=== PATIENT | female | born 1930 | race African-American/Black ===

== ENCOUNTER 2016-07-18 10:57 | Observation (INO) | payer OTHER ==
[2016-07-18] MEDS ORDERED: SODIUM CHLORIDE 1,000 ML IV STA (11:20)
[2016-07-18 11:35] VITALS: BMI 22.3
--- NOTE | 2016-07-18 11:39 | PDOC ---
History of Present Illness - General Chief Complaint: Syncope/Near Syncope Stated Complaint: HYPOTENSIVE Time Seen by Provider: 07/18/16 11:14 History Source: Patient Exam Limitations: Dementia (mild) - History of Present Illness Initial Comments: 85 y/o F with PMH of DM presents to ER with report of syncopal event. Pt states that she was at a nutrition center today when she "didn't feel" right and was brought to ER. According to EMS pt had a witnessed syncopal event in her chair without head trauma w/high BGM and was hypotensive in 80s. Pt states she did not lose consciousness. At this time she also has the same feeling as "just not feeling right". She denies light-headedness, dizziness, change in vision, ringing in ears, cough, sob, chest pain, palpitations, loss of appetite, abdominal pain, diarrhea, constipation, blood in stool, dysuria, blood in urine , swelling, recent travel, sick contacts. 07/18/16 11:56 Past History - Past Medical History Allergies/Adverse Reactions: Allergies Allergy/AdvReac Type Severity Reaction Status Date / Time No Known Allergies Allergy Verified 07/18/16 11:16 Home Medications: Ambulatory Orders Amlodipine Besylate 5 mg PO DAILY 07/18/16 Aspirin [ASA -] 81 mg PO DAILY 07/18/16 Atorvastatin Ca [Lipitor] 40 mg PO HS 07/18/16 Donepezil HCl [Aricept -] 5 mg PO DAILY 07/18/16 Esomeprazole Magnesium [Nexium 24Hr] 40 mg PO DAILY 07/18/16 Ezetimibe [Zetia] 10 mg PO DAILY 07/18/16 Insulin (Novolog 70/30) [Novolog Mix 70/30 Flexpen -] 20 units SQ DAILY Insulin (Novolog 70/30) [Novolog Mix 70/30 Flexpen -] 40 units SQ AM 07/18/16 Insulin (Novolog 70/30) [Novolog Mix 70/30 Flexpen -] 40 units SQ HS 07/18/16 Lisinopril [Prinivil] 10 mg PO DAILY 07/18/16 Valsartan [Diovan] 160 mg PO DAILY 07/18/16 Diabetes: Yes GI Disorders: Yes (gerd) HTN: Yes Hypercholesterolemia: Yes Psychiatric Problems: Yes (dementia) - Psycho/Social/Smoking Cessation Hx Suicidal Ideation: No Smoking History: Never smoked Hx Alcohol Use: No Drug/Substance Use Hx: No Review of Systems - Review of Systems Able to Perform ROS?: Yes Comments:: CONSTITUTIONAL: +"not feeling well" Absent: fever, chills, generalized weakness, loss of appetite HEENT: Absent: throat pain, throat swelling, difficulty swallowing, ear pain, eye pain, visual Changes CARDIOVASCULAR: Absent: chest pain, syncope, palpitations, irregular heart rate , lightheadedness, peripheral edema RESPIRATORY: Absent: cough, shortness of breath, dyspnea with exertion, wheezing , stridor GASTROINTESTINAL:Absent: abdominal pain, nausea, vomiting, diarrhea, constipation, hematochezia GENITOURINARY: Absent: dysuria, hematuria, flank pain, genital pain SKIN: Absent: rash, itching, pallor ENDOCRINE:Absent: unexplained weight gain, unexplained weight loss NEUROLOGIC: Absent: headache, focal weakness or paresthesias, dizziness, unsteady gait, mental status changes PSYCHIATRIC: Absent: anxiety, depression, suicidal or homicidal ideation, hallucinations *Physical Exam - Vital Signs Last Vital Signs Temp Pulse Resp BP Pulse Ox 98.1 F 63 18 91/46 96 07/18/16 11:16 07/18/16 11:16 07/18/16 11:16 07/18/16 11:16 07/18/16 11:16 - Physical Exam Comments: GENERAL: +mild dementia. Well developed, well nourished. Awake and alert. No acute distress. HEENT: Normocephalic, atraumatic. PERRLA, EOMI. No conjunctival pallor. Sclera are non-icteric. NECK: Supple. Full ROM. CARDIOVASCULAR: +holosystolic murmur best heard in aortic region. Regular rate and rhythm. No rubs, or gallops. Distal pulses are 2+ and symmetric. PULMONARY: No evidence of respiratory distress. Lungs clear to auscultation bilaterally. No wheezing, rales or rhonchi. ABDOMINAL: Soft. Non-tender. Non-distended. No rebound or guarding. No organomegaly. Normoactive bowel sounds. MUSCULOSKELETAL: Normal range of motion at all joints. No bony deformities or tenderness. No CVA tenderness. EXTREMITIES: No cyanosis. No edema. SKIN: Warm and dry. Normal capillary refill. No rashes. No jaundice. NEUROLOGICAL: +mild dementia, Alert, awake, appropriate. Normal speech. PSYCHIATRIC: +mild dementia, Cooperative. Good eye contact. Appropriate mood and affect. ED Treatment Course - LABORATORY CBC & Chemistry Diagram: 07/18/16 11:16 07/18/16 23:00 Medical Decision Making - Medical Decision Making 07/18/16 11:52 Will work up pt for syncopal episode. CBC, CMP, Mg, UA, acetone, Head CT. Will also add echo due to +murmur on PE. Fluids also ordered for hypotension. *DC/Admit/Observation/Transfer Diagnosis at time of Disposition: Syncope, Diabetes mellitus out of control, Lactic acid acidosis
[2016-07-18 11:44] LABS: MCH 29.9 pg (25.7-33.7); MCHC 33.1 g/dl (32.0-36.0); MEAN CELL VOLUME 90.4 fl (80-96); MEAN PLT VOLUME 12.1 fl (7.5-11.1); PLATELET COUNT 137 K/MM3 (134-434); WHITE BLOOD COUNT 10.7 K/mm3 (4.0-10.0)
--- NOTE | 2016-07-18 11:44 | PDOC ---
Attending Attestation - Resident Resident Name: Mark Sandy - ED Attending Attestation I have performed the following: I have examined & evaluated the patient, The case was reviewed & discussed with the resident, I agree w/resident's findings & plan - HPI HPI: 07/18/16 11:52 - HPI HPI: 07/18/16 11:51 Patient is a 85 year old female with a significant past medical history of mild dementia, DM, hypertension and hyperlipidemia who presents to the ED from [facility] s/p syncopal episode. As per nursing staff, patient was witnessed to have a syncopal episode while sitting down in the chair that lasted for 2 minutes, she did not fall out of the chair. Patient states that she did not syncopize she notes that she did not feel good so she put her head down on the table. As per EMS, patient was found to be BGM of 506 and hypotensive 85/66 and IV of NS was started and BGM of 506. Patient denies fever, chills, cp, SOB, nausea, vomiting, diarrhea, constipation , abdominal pain. Patient denies dysuria. She denies any headache, LOC, blurry vision, numbness or tingling. SH: lives at home by herself, and goes to adult daycare every day. Her daughter lives nearby per pt Allergies: NKA <Nuvia Chavez - Last Filed: 07/18/16 11:51> - Physicial Exam PE: 07/18/16 11:53 Physical exam Last Vital Signs Temp Pulse Resp BP Pulse Ox 98.1 F 63 18 91/46 96 07/18/16 11:16 07/18/16 11:16 07/18/16 11:16 07/18/16 11:16 07/18/16 11:20 Pt is A+O x 2 1/2 Patient is answering questions, and head is normocephalic and atraumatic Lungs are clear Heart is regular with a 1 to 2 out of 6 holosystolic murmur Abdomen is soft and nontender Grossly nonfocal neurologic exam - Medical Decision Making 07/18/16 11:55 EKG Normal sinus rhythm 64, with occasional PACs Normal AV and IV conduction time Normal QTC Otherwise normal EKG There is no old EKG available for comparison at this time 85-year-old female with a witnessed syncopal episode, who did not fall out of the chair or strike her head, and was found hypotensive, and with a high blood sugar She denies any specific complaints at this time and just states that she generally doesn't feel well, without specifics 07/18/16 15:17 Laboratory Results - last 24 hr 07/18/16 07/18/16 07/18/16 11:16 11:16 11:16 WBC 10.7 H RBC 4.49 Hgb 13.4 Hct 40.6 MCV 90.4 MCHC 33.1 RDW 13.0 Plt Count 137 MPV 12.1 H Sodium 138 Potassium 3.9 Chloride 101 Carbon Dioxide 27 Anion Gap 10 BUN 22 H Creatinine 1.5 H Creat Clearance w eGFR 33.16 Random Glucose 355 H* Lactic Acid Calcium 8.8 Magnesium 1.9 Total Bilirubin 0.3 AST 14 L ALT 30 Alkaline Phosphatase 114 Creatine Kinase 36 Troponin I < 0.02 Total Protein 6.0 L Albumin 2.9 L Urine Color Urine Appearance Urine pH Urine Protein Urine Glucose (UA) Urine Ketones Urine Blood Urine Nitrite Urine Bilirubin Urine Urobilinogen Ur Leukocyte Esterase Urine RBC Urine WBC Acetone, Qual Negative L 07/18/16 07/18/16 07/18/16 11:16 12:16 14:28 WBC RBC Hgb Hct MCV MCHC RDW Plt Count MPV Sodium Potassium Chloride Carbon Dioxide Anion Gap BUN Creatinine Creat Clearance w eGFR Random Glucose 392 H* Lactic Acid 4.804 H* Calcium Magnesium Total Bilirubin AST ALT Alkaline Phosphatase Creatine Kinase Troponin I Total Protein Albumin Urine Color Straw Urine Appearance Clear Urine pH 6.0 Urine Protein 2+ H Urine Glucose (UA) 3+ H Urine Ketones Negative Urine Blood Negative Urine Nitrite Negative Urine Bilirubin Negative Urine Urobilinogen Negative Ur Leukocyte Esterase Negative Urine RBC None Urine WBC None Acetone, Qual Repeat glucose came up According to patient's son, she has not been taking her medication Will give a small dose of IV insulin, and continue IV hydration Repeat lactic still pending 07/18/16 15:20 CT scan of the head without There is some volume loss Otherwise NAD Chest x-ray Patient is very rotated no def. infiltrate seen 07/18/16 15:49 Repeat lactic down to 3.0 with hydration Patient given 3 units of regular insulin IV Will continue hydration Case and all results discussed with Dr. Gutierrez-will admit Discharge Disposition - Discharge Dispostion Admit: Yes - Diagnosis Syncope, Diabetes mellitus out of control, Lactic acid acidosis
[2016-07-18 12:04] LABS: ALBUMIN 2.9 g/dl (3.4-5.0); ANION GAP 10 (8-16); CALCIUM 8.8 mg/dL (8.5-10.1); CO2 27 mmol/L (21-32); MAGNESIUM 1.9 mg/dL (1.8-2.4)
[2016-07-18 12:09] LABS: ALK PHOS 114 U/L (45-117); BILIRUBIN,TOTAL 0.3 mg/dL (0.2-1.0); CREATININE 1.5 mg/dL (0.55-1.02); SGOT/AST 14 U/L (15-37); SGPT/ALT 30 U/L (12-78); TROPONIN I < 0.02 ng/ml (0.00-0.05)
[2016-07-18 12:11] LABS: GLUCOSE,RANDOM 355 mg/dL (74-106)
[2016-07-18 12:33] LABS: URINE APPEARANCE CLEAR; URINE BILIRUBIN NEGATIVE (NEGATIVE); URINE BLOOD NEGATIVE (NEGATIVE); URINE COLOR STRAW; URINE GLUCOSE (UA) 3+ (NEGATIVE); URINE KETONE NEGATIVE (NEGATIVE); URINE LEUK ESTERASE NEGATIVE (NEGATIVE); URINE NITRITE NEGATIVE (NEGATIVE); URINE UROBILINOGEN NEGATIVE E.U./dl (0.2-1.0)
[2016-07-18 12:42] LABS: URINE PROTEIN 2+ (NEGATIVE)
[2016-07-18] MEDS ORDERED: INSULIN REGULAR HUMAN 100 UNITS/ML *VIAL IVPUSH ONE (15:18)
[2016-07-18] MEDS ORDERED: INSULIN REGULAR HUMAN 100 UNITS/ML *VIAL ONE (16:04)
--- NOTE | 2016-07-18 16:36 | HP ---
CHIEF COMPLAINT: I didn't feel right PCP: Dr. Jud Nuñez HISTORY OF PRESENT ILLNESS: 85 yo AA F with h/o mild dementia on aricept, IDDM type 2, HTN brought in by EMS because she didn't feel right. Patient stated that she was at a senior center and talking to the staff when she suddenly felt "not right". She then put her head on the table and try to rest. The product design manager at the senior center called EMS and she's brought to [facility] ED. She's on novolog flexpen 70/30 mix dose 40 units before sleep, 40 units in AM, and 20 units during the day and she admits that her blood sugar before injection ranges from 300-500. She denies polyuria, dysuria, abd pain, chest pain, dizziness, loss of consciousness, headache, vision change, weakness in extremities. ER course was notable for: (1) BP of 91/46 before fluid, 122/59 after 1L NS (2) Lactic acid of 4.8, glc of 355 (3) 3 units of regular insulin given Recent Travel: Denies PAST MEDICAL HISTORY: Mild dementia HTN IDDM PAST SURGICAL HISTORY: None Social History: Smokin cigarettes/day since 19 years old Alcohol: Social Drugs: Denies Family History: Allergies No Known Allergies Allergy (Verified 07/18/16 11:16) HOME MEDICATIONS: Home Medications Medication Instructions Recorded Amlodipine Besylate 5 mg PO DAILY 07/18/16 Aspirin [ASA -] 81 mg PO DAILY 07/18/16 Atorvastatin Ca [Lipitor] 40 mg PO HS 07/18/16 Donepezil HCl [Aricept -] 5 mg PO DAILY 07/18/16 Esomeprazole Magnesium [Nexium 40 mg PO DAILY 07/18/16 24Hr] Ezetimibe [Zetia] 10 mg PO DAILY 07/18/16 Insulin (Novolog 70/30) [Novolog 20 units SQ DAILY 07/18/16 Mix 70/30 Flexpen -] Insulin (Novolog 70/30) [Novolog 40 units SQ AM 07/18/16 Mix 70/30 Flexpen -] Insulin (Novolog 70/30) [Novolog 40 units SQ HS 07/18/16 Mix 70/30 Flexpen -] Lisinopril [Prinivil] 10 mg PO DAILY 07/18/16 Valsartan [Diovan] 160 mg PO DAILY 07/18/16 REVIEW OF SYSTEMS CONSTITUTIONAL: Absent: fever, chills, diaphoresis, generalized weakness, malaise, loss of appetite, weight change HEENT: Absent: rhinorrhea, nasal congestion, throat pain, throat swelling, difficulty swallowing, mouth swelling, ear pain, eye pain, visual changes CARDIOVASCULAR: Absent: chest pain, syncope, palpitations, irregular heart rate, lightheadedness , peripheral edema RESPIRATORY: Absent: cough, shortness of breath, dyspnea with exertion, orthopnea, wheezing, stridor, hemoptysis GASTROINTESTINAL: Absent: abdominal pain, abdominal distension, nausea, vomiting, diarrhea, constipation, melena, hematochezia GENITOURINARY: Absent: dysuria, frequency, urgency, hesitancy, hematuria, flank pain, genital pain MUSCULOSKELETAL: Absent: myalgia, arthralgia, joint swelling, back pain, neck pain SKIN: Absent: rash, itching, pallor HEMATOLOGIC/IMMUNOLOGIC: Absent: easy bleeding, easy bruising, lymphadenopathy, frequent infections ENDOCRINE: Absent: unexplained weight gain, unexplained weight loss, heat intolerance, cold intolerance NEUROLOGIC: Absent: headache, focal weakness or paresthesias, dizziness, unsteady gait, seizure, mental status changes, bladder or bowel incontinence PSYCHIATRIC: Absent: anxiety, depression, suicidal or homicidal ideation, hallucinations. PHYSICAL EXAMINATION Vital Signs Temperature 98.4 F 07/18/16 15:00 Pulse Rate 67 07/18/16 15:00 Respiratory Rate 20 07/18/16 15:00 Blood Pressure 122/59 07/18/16 15:00 O2 Sat by Pulse Oximetry (%) 96 07/18/16 15:00 GENERAL: Awake, alert, and fully oriented, in no acute distress. HEAD: Normal with no signs of trauma. EYES: Bilateral Cloudy pupils, sclera anicteric, conjunctiva clear. EARS, NOSE, THROAT: Ears normal, nares patent, oropharynx clear without exudates. Moist mucous membranes. NECK: Normal range of motion, supple without lymphadenopathy, JVD, or masses. LUNGS: Breath sounds equal, clear to auscultation bilaterally. No wheezes, and no crackles. No accessory muscle use. HEART: Regular rate and rhythm, normal S1 and S2 with ejection murmur, rub or gallop. ABDOMEN: Soft, nontender, not distended, normoactive bowel sounds, no guarding, no rebound, no masses. EXTREMITIES: 2+ pulses, No calf tenderness. No peripheral edema. SKIN: Warm, dry CBCD WBC 10.7 K/mm3 (4.0-10.0) H 07/18/16 11:16 RBC 4.49 M/mm3 (3.60-5.2) 07/18/16 11:16 Hgb 13.4 GM/dL (10.7-15.3) 07/18/16 11:16 Hct 40.6 % (32.4-45.2) 07/18/16 11:16 MCV 90.4 fl (80-96) 07/18/16 11:16 MCHC 33.1 g/dl (32.0-36.0) 07/18/16 11:16 RDW 13.0 % (11.6-15.6) 07/18/16 11:16 Plt Count 137 K/MM3 (134-434) 07/18/16 11:16 MPV 12.1 fl (7.5-11.1) H 07/18/16 11:16 CMP Sodium 138 mmol/L (136-145) 07/18/16 11:16 Potassium 3.9 mmol/L (3.5-5.1) 07/18/16 11:16 Chloride 101 mmol/L (98-107) 07/18/16 11:16 Carbon Dioxide 27 mmol/L (21-32) 07/18/16 11:16 Anion Gap 10 (8-16) 07/18/16 11:16 BUN 22 mg/dL (7-18) H 07/18/16 11:16 Creatinine 1.5 mg/dL (0.55-1.02) H 07/18/16 11:16 Creat Clearance w eGFR 33.16 (>60) 07/18/16 11:16 Calcium 8.8 mg/dL (8.5-10.1) 07/18/16 11:16 Total Bilirubin 0.3 mg/dL (0.2-1.0) 07/18/16 11:16 AST 14 U/L (15-37) L 07/18/16 11:16 ALT 30 U/L (12-78) 07/18/16 11:16 Alkaline Phosphatase 114 U/L (45-117) 05/11/17 11:16 Total Protein 6.0 g/dl (6.4-8.2) L 07/18/16 11:16 Albumin 2.9 g/dl (3.4-5.0) L 07/18/16 11:16 ASSESSMENT/PLAN: 85 yo AA F with h/o mild dementia on aricept, IDDM type 2, HTN admitted for observation for hyperglycemia. Hyperglycemia - Due to poorly controlled diabetes - S/p 3 units of regular insulin - On Sliding scale - BGM Elevated lactic acid - 2/2 hyperglycemia and tissue hypoxia from hypotension - Repeat lactic acid at 6pm today and 6am tomorrow DEMARIO - Unknown baseline - Likely 2/2 dehydration in the setting of diabetic nephropathy - Cont. hydration HTN - Hold home BP medication Dementia - Cont. aricept FEN - NS 150cc/hr - Cont. to monitor Cr - Diabetic diet Prophylaxis - DVT: heparin - GI: not indicated Disposition - Obs - Discharge if lactic acid and blood glc normalizes Code status - Full Visit type - Emergency Visit Emergency Visit: Yes ED Registration Date: 07/18/16 Care time: The patient presented to the Emergency Department on the above date and was hospitalized for further evaluation of their emergent condition. - New Patient This patient is new to me today: Yes Date on this admission: 07/18/16 - Critical Care Critical Care patient: No
[2016-07-18] MEDS ORDERED: ACETAMINOPHEN 325 MG TABLET (FP) PO PRN (16:45)
--- NOTE | 2016-07-18 16:45 | EKG ---
Test Reason : Blood Pressure : / mmHG Vent. Rate : 064 BPM Atrial Rate : 064 BPM P-R Int : 126 ms QRS Dur : 072 ms QT Int : 432 ms P-R-T Axes : 064 044 087 degrees QTc Int : 445 ms SINUS RHYTHM WITH PREMATURE SUPRAVENTRICULAR COMPLEXES OTHERWISE NORMAL ECG NO PREVIOUS ECGS AVAILABLE Confirmed by ARIANNA VALLECILLO, HYACINTH ([id number]) on 07/18/2016 4:45:23 PM Referred By: Confirmed By:HYACINTH KELLER MD
[2016-07-18] MEDS: SODIUM CHLORIDE 1,000 ML IV SCH (17:07)
[2016-07-18] MEDS: HEPARIN NA (PORCINE) 5,000 UNITS/ML 1ML VIAL SQ SCH ×2 (19:38→22:50)
[2016-07-18 20:26] LABS: CALCIUM 8.7 mg/dL (8.5-10.1); COCKROFT - GAULT 28.339; CREATININE 1.4 mg/dL (0.55-1.02)
[2016-07-18] MEDS ORDERED: ATORVASTATIN CA 40 MG TABLET (FP) PO SCH (22:00)
[2016-07-18] MEDS ORDERED: INSULIN (NOVOLOG) ASPART 100 UNITS/ML 10ML VIAL ONE (22:37)
[2016-07-18] MEDS: INSULIN SLIDING SCALE (NOVOLOG) 1 VIAL SQ SCH (22:51)
[2016-07-19 03:53] LABS: CALCIUM 7.9 mg/dL (8.5-10.1); COCKROFT - GAULT 28.339; CREATININE 1.4 mg/dL (0.55-1.02)
[2016-07-19 08:14] LABS: MCH 29.9 pg (25.7-33.7); MCHC 33.3 g/dl (32.0-36.0); MEAN CELL VOLUME 89.7 fl (80-96); MEAN PLT VOLUME 12.6 fl (7.5-11.1); PLATELET COUNT 110 K/MM3 (134-434); WHITE BLOOD COUNT 8.9 K/mm3 (4.0-10.0)
[2016-07-19 08:45] LABS: CALCIUM 8.3 mg/dL (8.5-10.1); COCKROFT - GAULT 39.678
[2016-07-19] MEDS ORDERED: PT OWN MED DRAWER 7, Y5N ONE (09:27)
[2016-07-19] MEDS: SODIUM CHLORIDE 1,000 ML IV SCH (09:38)
[2016-07-19] MEDS ORDERED: ASPIRIN 81 MG CHEWABLE TABLETS PO SCH (10:00)
[2016-07-19] MEDS ORDERED: PANTOPRAZOLE 40 MG TABLET (FP) PO SCH (10:00)
[2016-07-19] MEDS ORDERED: LISINOPRIL 10 MG TABLET (FP) PO SCH (10:00)
[2016-07-19] MEDS ORDERED: DONEPEZIL HCL 5 MG TABLET (FP) PO SCH (10:00)
[2016-07-19] MEDS ORDERED: EZETIMIBE 10 MG TABLET (FP) PO SCH (10:00)
--- NOTE | 2016-07-19 10:46 | DS ---
Physical Exam: SUBJECTIVE: Patient seen and examined at bedside. She has no complaint. Last night her blood glc was 485 and this AM was 111. No other acute event overnight. OBJECTIVE: Vital Signs Period Temp Pulse Resp BP Sys/Murdock Pulse Ox Last 24 Hr 97.9 F-98.6 F 67-82 18-20 116-160/51-74 90-99 PHYSICAL EXAM GENERAL: Awake, alert, and fully oriented, in no acute distress. HEAD: Normal with no signs of trauma. EYES: Bilateral Cloudy pupils, sclera anicteric, conjunctiva clear. EARS, NOSE, THROAT: Ears normal, nares patent, oropharynx clear without exudates. Moist mucous membranes. NECK: Normal range of motion, supple without lymphadenopathy, JVD, or masses. LUNGS: Breath sounds equal, clear to auscultation bilaterally. No wheezes, and no crackles. No accessory muscle use. HEART: Regular rate and rhythm, normal S1 and S2 with ejection murmur, rub or gallop. ABDOMEN: Soft, nontender, not distended, normoactive bowel sounds, no guarding, no rebound, no masses. EXTREMITIES: 2+ pulses, No calf tenderness. No peripheral edema. SKIN: Warm, dry LABS Laboratory Results - last 24 hr 07/18/16 07/18/16 07/18/16 17:01 19:35 19:35 WBC RBC Hgb Hct MCV MCHC RDW Plt Count MPV Sodium 138 Potassium 4.3 Chloride 102 Carbon Dioxide 27 Anion Gap 9 BUN 23 H Creatinine 1.4 H POC Glucometer [phone] Random Glucose 304 H* D Hemoglobin A1c % Lactic Acid 1.743 Calcium 8.7 07/18/16 07/18/16 07/18/16 19:35 22:41 23:00 WBC RBC Hgb Hct MCV MCHC RDW Plt Count MPV Sodium 139 Potassium 4.2 Chloride 104 Carbon Dioxide 24 Anion Gap 11 BUN 24 H Creatinine 1.4 H POC Glucometer 510 Random Glucose 483 H* D Hemoglobin A1c % 14.6 H Lactic Acid Calcium 7.9 L 07/18/16 07/19/16 07/19/16 23:05 06:20 06:20 WBC 8.9 RBC 4.37 Hgb 13.0 Hct 39.2 MCV 89.7 MCHC 33.3 RDW 13.0 Plt Count 110 L MPV 12.6 H Sodium 143 Potassium 3.7 Chloride 108 H Carbon Dioxide 26 Anion Gap 9 BUN 19 H D Creatinine 1.0 D POC Glucometer 460 Random Glucose 111 H D Hemoglobin A1c % Lactic Acid Calcium 8.3 L 07/19/16 07/19/16 06:20 06:58 WBC RBC Hgb Hct MCV MCHC RDW Plt Count MPV Sodium Potassium Chloride Carbon Dioxide Anion Gap BUN Creatinine POC Glucometer 132 Random Glucose Hemoglobin A1c % Lactic Acid 0.945 Calcium HOSPITAL COURSE: Date of Admission:07/18/16 This is an 85 yo AA F with h/o mild dementia on aricept, IDDM type 2, HTN brought in by EMS because she didn't feel right. Patient stated that she was at a senior center and talking to the staff when she suddenly felt "not right". She then put her head on the table and try to rest. The breakfast manager at the senior center called EMS and she's brought to [facility] ED. She's on novolog flexpen 70/30 mix dose 40 units before sleep, 40 units in AM, and 20 units during the day and she admits that her blood sugar before injection ranges from 300-500. She denies polyuria, dysuria, abd pain, chest pain, dizziness, loss of consciousness , headache, vision change, weakness in extremities. In the ED, her blood glc was 355, BP of 94/61 and lactic acid 4.8. She was given 1L of IV saline and 3 units of regular insulin and admitted for observation. On the floor, she's on novolog sliding scale and BP medications were held. She received 12 units of novolog this morning and glc improved to 111 and lactic acid is within normal limits. Her orthostatic BP was also within normal range. She's in stable condition to be discharged home and resume her insulin regiment. She's instructed to follow up with her primary doctor for any modification to her current insulin regiment. Date of Discharge: 07/19/16 Minutes to complete discharge: 35 Discharge Summary Reason For Visit: UNCONTROLLED DM,SYNCOPE Current Active Problems Diabetes mellitus out of control (Acute) Lactic acid acidosis (Acute) Syncope (Acute) Condition: Stable - Instructions Diet, Activity, Other Instructions: You were seen in the ED and admitted to the hospital because you were dehydrated and blood sugar was high. You were treated with IV fluids and insulin. You condition has improved and now in stable condition to be discharged. Please continue your current insulin therapy regiment until you follow up with your primary doctor. Your primary doctor will manage your diabetes and make any modification to the current regiment if necessary. Please drink plenty of fluid and resume low card low fat diet. Referrals: Jud Collins MD [Primary Care Provider] - Disposition: HOME - Home Medications Comprehensive Discharge Medication List: Ambulatory Orders Aspirin [ASA -] 81 mg PO DAILY 07/18/16 Atorvastatin Ca [Lipitor] 40 mg PO HS 07/18/16 Donepezil HCl [Aricept -] 5 mg PO DAILY 07/18/16 Esomeprazole Magnesium [Nexium 24Hr] 40 mg PO DAILY 07/18/16 Ezetimibe [Zetia] 10 mg PO DAILY 07/18/16 Insulin (Novolog 70/30) [Novolog Mix 70/30 Flexpen -] 20 units SQ BIDAC Lisinopril [Prinivil] 10 mg PO DAILY 07/18/16 Valsartan [Diovan] 160 mg PO DAILY 07/18/16 This patient is new to me today: No Emergency Visit: No Critical Care patient: No - Discharge Referral Referred to [facility] No
[2016-07-19] MEDS ORDERED: INSULIN (NOVOLOG) ASPART 100 UNITS/ML 10ML VIAL ONE (11:41)
[2016-07-19] MEDS: INSULIN SLIDING SCALE (NOVOLOG) 1 VIAL SQ SCH ×2 (11:44→11:45)
[2016-07-19 13:03] VITALS: TEMP 98.5
[2016-07-19 13:05] VITALS: BP 139/65; PULSE 80
[2016-07-19] MEDS: HEPARIN NA (PORCINE) 5,000 UNITS/ML 1ML VIAL SQ SCH (13:54)
--- NOTE | 2016-07-19 17:07 | PN ---
Teaching Attending Note Name of Resident: Nigel Ellis ATTENDING PHYSICIAN STATEMENT I saw and evaluated the patient. I reviewed the resident's note and discussed the case with the resident. I agree with the resident's findings and plan as documented. SUBJECTIVE: OBJECTIVE: Vital Signs Period Temp Pulse Resp BP Sys/Murdock Pulse Ox Last 24 Hr 97.9 F-98.6 F 67-82 18-20 116-160/51-74 90-99 ASSESSMENT AND PLAN:
== END 2016-07-19 15:11 | disposition home or self-care (01) ==
LOC: JER 10:57 → INTOOBSV 15:51 → UNDOADMOB 15:51 → JERBED 15:51 → J4S 18:30
PROVIDERS: ADMIT Internal Medicine; ATTEND Internal Medicine
PROC: 3E033VG Introduction of Insulin into Peripheral Vein, Percutaneous Approach (ICD-10-PCS; principal; 2016-07-18)
PROC: 3E013VG Introduction of Insulin into Subcutaneous Tissue, Percutaneous Approach (ICD-10-PCS; 2016-07-18)
PROC: 3E0337Z Introduction of Electrolytic and Water Balance Substance into Peripheral Vein, Percutaneous Approach (ICD-10-PCS; 2016-07-18)
DX: E11.65 Type 2 diabetes mellitus with hyperglycemia (principal); R55 Syncope and collapse; Z79.4 Long term (current) use of insulin; E87.2 Acidosis; K21.9 Gastro-esophageal reflux disease without esophagitis; I10 Essential (primary) hypertension; E78.00 Pure hypercholesterolemia, unspecified; F03.90 Unspecified dementia, unspecified severity, without behavioral disturbance, psychotic disturbance, mood disturbance, and anxiety; Z79.82 Long term (current) use of aspirin; Z72.0 Tobacco use; N17.9 Acute kidney failure, unspecified
CPT/HCPCS: 36415; 70450-TC; 71010-TC; 80048; 80053; 81003; 81015; 82009; 82550; 82947; 83036; 83605; 83735; 84484; 85027; 93005; 93010; 93306-TC; 99285-25; G0378; J1644